=== PATIENT | female | born 1940 | race Caucasian/White ===

== ENCOUNTER 2017-07-03 11:59 | Emergency (ER) | payer MEDICARE ==
[~2017-07-03] VITALS: Wt 70.3 kg
[~2017-07-03 11:59] MED LIST: ALBUTEROL0.09 MG/Ac INH; AMARYL2 MG PO; AMOXICILLIN500 M1 PO; AVPAK AZITHROM250 M1 PO; BACTROBAN CREAM15 GM T; CITALOPRAM20 MG PO; CLEOCIN150 MG PO; DIOVAN40 MG PO; Esidrex,Oretic,25 MG PO; GLIMEPIRIDE4 MG PO; HYDROCHLOROT TAB 25M PO; KEFLEX500 MG PO; LEVOTHYROXINE0.05 M1 PO; METFORMIN HYD1000 MG PO; METFORMIN1000 MG PO; MOTRIN,RUFEN800 MG PO; OMEPRAZOLE DR20 MG PO; OMEPRAZOLE20 MG PO; PREDNISONE10 MG PO; ROBITUSSIN DM 105 ML PO; SIMVASTATIN20 MG PO; SIMVASTATIN40 MG PO; SYNTHROID0.05 MG PO; VIBRAMYCIN100 MG PO
[2017-07-03] MEDS ORDERED: PROAIR HFA8.5 GM INH (12:08)
[2017-07-03 12:43] LABS: BASO % 0.3 % (0.0-1.0); EOS # 0.1 10*3/uL (0.0-0.4); EOS % 1.2 % (1.0-4.0); HEMATOCRIT 38.6 % (37.0-47.0); HEMOGLOBIN 12.1 g/dl (12.0-16.0); LYMPH # 1.8 10*3/uL (1.3-4.4); LYMPH % 19.5 % (27.0-41.0); MEAN CELL VOLUME 86.9 fl (81.0-99.0); MEAN CORPUSCULAR HGB 27.3 pg (27.0-31.0); MEAN CORPUSCULAR HGB CONC 31.3 g/dl (33.0-37.0); MEAN PLATELET VOLUME 10.4 fl (9.6-12.3); MONO # 0.8 10*3/uL (0.1-1.0); MONO % 8.3 % (3.0-9.0); NEUT # 6.5 10*3/uL (2.3-7.9); NEUT % 70.4 % (47.0-73.0); PLATELET COUNT AUTOMATED 222 10*3/uL (130-400); RED BLOOD COUNT 4.44 10*6/uL (4.10-5.10); WHITE BLOOD COUNT 9.2 10*3/uL (4.8-10.8)
[2017-07-03 12:57] LABS: ALBUMIN 3.4 gm/dl (3.1-4.5); ALKALINE PHOSPHATASE 98 U/L (45-117); BUN 10 mg/dl (7-24); CHLORIDE 99 mmol/L (98-107); CREATININE 0.76 mg/dL (0.55-1.02); SGOT/AST 14 IU/L (3-35); SGPT/ALT 26 U/L (12-78); SODIUM 134 mmol/L (136-145); TOTAL PROTEIN 7.1 gm/dL (6.4-8.2)
[2017-07-03] MEDS ORDERED: AVPAK AZITHROM250 M1 PO (13:02)
== END 2017-07-03 14:13 | disposition home or self-care (01) ==
LOC: ED 11:59
PROVIDERS: Student in an Organized Health Care Education/Training Program
DX: J02.9 Acute pharyngitis, unspecified (principal); H92.01 Otalgia, right ear; R05 Cough; J44.9 Chronic obstructive pulmonary disease, unspecified; E11.9 Type 2 diabetes mellitus without complications; Z79.899 Other long term (current) drug therapy

== ENCOUNTER 2017-10-08 16:59 | Inpatient (IN) | payer MEDICARE ==
[~2017-10-08] VITALS: Ht 162.5 cm; Wt 69.4 kg
[~2017-10-08 16:59] MED LIST changes: +PROAIR HFA8.5 GM INH
[2017-10-08 17:08] VITALS: BP 189/80
[2017-10-08 17:42] LABS: BASO % 0.3 % (0.0-1.0); EOS # 0.1 10*3/uL (0.0-0.4); EOS % 0.5 % (1.0-4.0); HEMATOCRIT 40.1 % (37.0-47.0); HEMOGLOBIN 13.1 g/dl (12.0-16.0); LYMPH # 1.7 10*3/uL (1.3-4.4); LYMPH % 14.5 % (27.0-41.0); MEAN CELL VOLUME 84.2 fl (81.0-99.0); MEAN CORPUSCULAR HGB 27.5 pg (27.0-31.0); MEAN CORPUSCULAR HGB CONC 32.7 g/dl (33.0-37.0); MEAN PLATELET VOLUME 10.6 fl (9.6-12.3); MONO # 0.7 10*3/uL (0.1-1.0); MONO % 5.7 % (3.0-9.0); NEUT % 77.9 % (47.0-73.0); PLATELET COUNT AUTOMATED 303 10*3/uL (130-400); RED BLOOD COUNT 4.76 10*6/uL (4.10-5.10); RED CELL DISTRI WIDTH 12.6 % (0-14.5); WHITE BLOOD COUNT 11.6 10*3/uL (4.8-10.8)
[2017-10-08 17:55] VITALS: BP 158/92
[2017-10-08 18:00] LABS: ALBUMIN 3.4 gm/dl (3.1-4.5); ALKALINE PHOSPHATASE 113 U/L (45-117); BUN 14 mg/dl (7-24); CHLORIDE 95 mmol/L (98-107); CREATININE 0.79 mg/dL (0.55-1.02); POTASSIUM 4.1 mmol/L (3.5-5.1); SGOT/AST 12 IU/L (3-35); SGPT/ALT 27 U/L (12-78); SODIUM 132 mmol/L (136-145); TOTAL PROTEIN 7.6 gm/dL (6.4-8.2)
[2017-10-08 18:01] LABS: ACT PARTIAL THROMBO TIME 24.3 SECONDS (20.8-31.5); INTERNATIONAL NORM RATIO 0.9 (2.0-3.5)
[2017-10-08 18:03] LABS: TROPONIN I < 0.015 ng/ml (<0.045)
[2017-10-08 18:17] VITALS: BP 138/68
[2017-10-08] MEDS ORDERED: SYNTHROID,LEVO88 MCG PO (18:47)
[2017-10-08] MEDS ORDERED: CLARITIN LIQUI-10 MG PO (18:47)
[2017-10-08] MEDS ORDERED: METFORMIN1000 MG PO (18:48)
[2017-10-08] MEDS ORDERED: PRILOSEC20 M1 PO (18:48)
[2017-10-08 19:00] VITALS: BP 140/60
[2017-10-08 20:00] VITALS: BP 132/62
[2017-10-08 23:07] LABS: BILIRUBIN NEGATIVE (NEGATIVE); BLOOD NEGATIVE (NEGATIVE); CLARITY CLEAR (CLEAR); COLOR YELLOW (YELLOW); GLUCOSE 3+ (NEGATIVE); KETONE TRACE (NEGATIVE); LEUKO ESTERASE NEGATIVE (NEGATIVE); NITRITE NEGATIVE (NEGATIVE); PH 5.5 (5.0-9.0); SPECIFIC GRAVITY <= 1.005 (1.005-1.030); UROBILINOGEN 0.2 E.U./dl (0.2-1.0)
[2017-10-08 23:12] LABS: BACTERIA TRACE; EPITHELIAL CELLS 0-2; RBC 0-2 rbc/hpf (0-2)
[2017-10-09] VITALS: BP 149/71
[2017-10-09 07:21] LABS: HEMATOCRIT 34.9 % (37.0-47.0); HEMOGLOBIN 11.3 g/dl (12.0-16.0); MEAN CELL VOLUME 85.5 fl (81.0-99.0); MEAN CORPUSCULAR HGB 27.7 pg (27.0-31.0); MEAN CORPUSCULAR HGB CONC 32.4 g/dl (33.0-37.0); MEAN PLATELET VOLUME 10.6 fl (9.6-12.3); PLATELET COUNT AUTOMATED 265 10*3/uL (130-400); RED BLOOD COUNT 4.08 10*6/uL (4.10-5.10); RED CELL DISTRI WIDTH 12.9 % (0-14.5); WHITE BLOOD COUNT 10.7 10*3/uL (4.8-10.8)
[2017-10-09 07:41] LABS: ACT PARTIAL THROMBO TIME 23.4 SECONDS (20.8-31.5)
[2017-10-09 07:55] LABS: ALBUMIN 2.9 gm/dl (3.1-4.5); BUN 14 mg/dl (7-24); CHLORIDE 102 mmol/L (98-107); POTASSIUM 4.1 mmol/L (3.5-5.1); SGOT/AST 6 IU/L (3-35); SGPT/ALT 23 U/L (12-78); SODIUM 138 mmol/L (136-145)
[2017-10-09 08:00] VITALS: BP 149/59
[2017-10-09 08:04] LABS: ALKALINE PHOSPHATASE 90 U/L (45-117); CHOLESTEROL 155 mg/dL (<200); CREATININE 0.72 mg/dL (0.55-1.02); HDL CHOLESTEROL 45 mg/dl (40-60); LDL CHOLESTEROL 95 mg/dL (9-159); PHOSPHOROUS 3.6 mg/dL (2.5-4.9); TOTAL PROTEIN 6.6 gm/dL (6.4-8.2); TRIGLYCERIDES 73 mg/dl (<150); VLDL CHOLESTEROL 15 mg/dL (6-40)
[2017-10-09 08:33] LABS: PLATELET SUFFICIENCY NORMAL (NORMAL); TOTAL CELLS COUNTED 100 #CELLS
[2017-10-09 09:11] LABS: VITAMIN D, 25-HYDROXY 13.5 ng/mL (30-100)
[2017-10-09 12:00] VITALS: BP 138/52
[2017-10-09 16:00] VITALS: BP 131/55
[2017-10-09 20:00] VITALS: BP 127/56
[2017-10-10] VITALS: BP 121/50
[2017-10-10 07:36] LABS: HEMATOCRIT 34.9 % (37.0-47.0); HEMOGLOBIN 11.4 g/dl (12.0-16.0); MEAN CELL VOLUME 85.3 fl (81.0-99.0); MEAN CORPUSCULAR HGB 27.9 pg (27.0-31.0); MEAN CORPUSCULAR HGB CONC 32.7 g/dl (33.0-37.0); MEAN PLATELET VOLUME 10.7 fl (9.6-12.3); PLATELET COUNT AUTOMATED 273 10*3/uL (130-400); RED BLOOD COUNT 4.09 10*6/uL (4.10-5.10); RED CELL DISTRI WIDTH 13.2 % (0-14.5); WHITE BLOOD COUNT 19.9 10*3/uL (4.8-10.8)
[2017-10-10 08:00] VITALS: BP 120/66
[2017-10-10 08:06] LABS: BUN 18 mg/dl (7-24); CHLORIDE 101 mmol/L (98-107); CREATININE 0.86 mg/dL (0.55-1.02); POTASSIUM 4.2 mmol/L (3.5-5.1); SODIUM 137 mmol/L (136-145)
[2017-10-10 08:25] LABS: BASOPHILS 1 % (0-1); TOTAL CELLS COUNTED 100 #CELLS
[2017-10-10 08:26] LABS: PLATELET SUFFICIENCY NORMAL (NORMAL)
[2017-10-10 12:00] VITALS: BP 131/69
[2017-10-10 16:00] VITALS: BP 119/58
[2017-10-10 20:00] VITALS: BP 135/66
[2017-10-11] VITALS: BP 126/54
[2017-10-11] MEDS ORDERED: GLYBURIDE1.5 MG PO (05:30)
[2017-10-11] MEDS ORDERED: DOXYCYCLINE100 M3 PO (05:30)
[2017-10-11] MEDS ORDERED: PREDNISONE10 MG PO (05:30)
[2017-10-11] MEDS ORDERED: VITAMIN D-32000 UNIT PO (05:30)
[2017-10-11] MEDS ORDERED: HYDROCHLOROTHIA25 M1 PO ×3 (07:37→07:39)
[2017-10-11] MEDS ORDERED: CLARITIN LIQUI-10 MG PO (07:38)
[2017-10-11] MEDS ORDERED: SIMVASTATIN40 MG PO (07:38)
[2017-10-11] MEDS ORDERED: PROAIR HFA8.5 GM INH (07:38)
[2017-10-11] MEDS ORDERED: CITALOPRAM20 MG PO (07:38)
[2017-10-11] MEDS ORDERED: PRILOSEC20 M1 PO (07:38)
[2017-10-11] MEDS ORDERED: SYNTHROID,LEVO88 MCG PO (07:38)
[2017-10-11] MEDS ORDERED: METFORMIN1000 MG PO (07:41)
[2017-10-11 08:00] VITALS: BP 126/64
== END 2017-10-11 10:32 | disposition home or self-care (01) | DRG 191 ==
LOC: ED 16:59 → 4E 18:27 → EDHOLD 18:27 → 4E 18:38
PROVIDERS: Family Medicine; Nurse Practitioner Family
DX: J44.1 Chronic obstructive pulmonary disease with (acute) exacerbation (principal); E87.1 Hypo-osmolality and hyponatremia; E11.65 Type 2 diabetes mellitus with hyperglycemia; E87.2 Acidosis; D64.9 Anemia, unspecified; E44.1 Mild protein-calorie malnutrition; F33.9 Major depressive disorder, recurrent, unspecified; K21.9 Gastro-esophageal reflux disease without esophagitis; E03.9 Hypothyroidism, unspecified; E78.5 Hyperlipidemia, unspecified; D72.829 Elevated white blood cell count, unspecified; E55.9 Vitamin D deficiency, unspecified; I10 Essential (primary) hypertension; Z71.6 Tobacco abuse counseling; Z72.0 Tobacco use; Z68.26 Body mass index [BMI] 26.0-26.9, adult; Z83.3 Family history of diabetes mellitus; Z80.9 Family history of malignant neoplasm, unspecified; Z82.49 Family history of ischemic heart disease and other diseases of the circulatory system; Z79.899 Other long term (current) drug therapy

== ENCOUNTER 2019-10-12 21:15 | Inpatient (IN) | payer OTHER ==
[~2019-10-12] VITALS: Ht 162.6 cm; Wt 69.5 kg
[~2019-10-12 21:15] MED LIST changes: +CLARITIN LIQUI-10 MG PO; +DOXYCYCLINE100 M3 PO; +GLYBURIDE1.5 MG PO; +HYDROCHLOROTHIA25 M1 PO; +PRILOSEC20 M1 PO; +SYNTHROID,LEVO88 MCG PO; +VITAMIN D-32000 UNIT PO
[2019-10-12 21:19] VITALS: BP 146/63
[2019-10-12 21:55] LABS: BASO # 0.1 10*3/uL (0.0-0.1); BASO % 0.4 % (0.0-1.0); EOS # 0.1 10*3/uL (0.0-0.4); EOS % 0.7 % (1.0-4.0); HEMATOCRIT 37.1 % (37.0-47.0); HEMOGLOBIN 11.9 g/dl (12.0-16.0); LYMPH # 1.8 10*3/uL (1.3-4.4); LYMPH % 10.7 % (27.0-41.0); MEAN CELL VOLUME 88.8 fl (81.0-99.0); MEAN CORPUSCULAR HGB 28.5 pg (27.0-31.0); MEAN CORPUSCULAR HGB CONC 32.1 g/dl (33.0-37.0); MONO # 1.2 10*3/uL (0.1-1.0); MONO % 7.3 % (3.0-9.0); NEUT # 13.2 10*3/uL (2.3-7.9); NEUT % 80.3 % (47.0-73.0); PLATELET COUNT AUTOMATED 229 10*3/uL (130-400); RED BLOOD COUNT 4.18 10*6/uL (4.10-5.10); RED CELL DISTRI WIDTH 12.7 % (0-14.5); WHITE BLOOD COUNT 16.5 10*3/uL (4.8-10.8)
[2019-10-12 22:08] VITALS: BP 124/48
[2019-10-12 22:10] LABS: ALBUMIN 3.9 gm/dl (3.1-4.5); ALKALINE PHOSPHATASE 81 U/L (45-117); BUN 16 mg/dl (7-24); CHLORIDE 107 mmol/L (98-107); CREATININE 0.93 mg/dL (0.55-1.02); SGOT/AST 12 IU/L (3-35); SGPT/ALT 21 U/L (12-78); SODIUM 139 mmol/L (136-145); TOTAL PROTEIN 7.5 gm/dL (6.4-8.2)
[2019-10-12 22:39] LABS: BILIRUBIN NEGATIVE (NEGATIVE); BLOOD NEGATIVE (NEGATIVE); CLARITY CLOUDY (CLEAR); COLOR YELLOW (YELLOW); GLUCOSE NEGATIVE (NEGATIVE); KETONE NEGATIVE (NEGATIVE); LEUKO ESTERASE 2+ (NEGATIVE); NITRITE NEGATIVE (NEGATIVE); SPECIFIC GRAVITY 1.025 (1.005-1.030); UROBILINOGEN 0.2 E.U./dl (0.2-1.0)
[2019-10-12 22:40] VITALS: BP 156/59
[2019-10-12 23:07] LABS: BACTERIA 1+; EPITHELIAL CELLS TNTC
[2019-10-12 23:10] VITALS: BP 140/55
[2019-10-12 23:40] VITALS: BP 138/60
--- NOTE | 2019-10-12 23:47 | NUR ---
GRANDSON TO BE CONTACTED WITH PATIENT DISPOSITION. PT GIVES VERBAL CONSENT. GERARDO ELENO WATSON() [phone]
[2019-10-13 00:10] VITALS: BP 125/57
[2019-10-13 00:40] VITALS: BP 107/82
--- NOTE | 2019-10-13 00:40 | NUR ---
Time: 39 A 78 year old FEMALE admitted to 5E under services of LOGAN LIU DO. Pt. arrived via bed from ER. Chief complaint: RIGHT HIP PAIN. ROE RIOJAS
--- NOTE | 2019-10-13 00:40 | NUR ---
CONSULT ALREADY CALLED VIA ER STAFF
[2019-10-13] MEDS ORDERED: METFORMIN850 MG PO (00:43)
--- NOTE | 2019-10-13 00:51 | NUR ---
IN TO SEE PATIENT AT BEDSIDE
[2019-10-13] MEDS ORDERED: PRILOSEC20 M1 PO (00:53)
[2019-10-13] MEDS ORDERED: CITALOPRAM40 MG PO (00:55)
--- NOTE | 2019-10-13 01:37 | NUR ---
AWARE THAT HOME MED ARE VERIFIED
--- NOTE | 2019-10-13 06:32 | NUR ---
PATIENT MEDICATED WITH MORPHINE FOR C/O 8/ PAIN. WILL MONITOR
[2019-10-13 07:37] LABS: BASO % 0.4 % (0.0-1.0); EOS # 0.1 10*3/uL (0.0-0.4); EOS % 1.2 % (1.0-4.0); HEMATOCRIT 35.3 % (37.0-47.0); HEMOGLOBIN 11.1 g/dl (12.0-16.0); LYMPH # 1.4 10*3/uL (1.3-4.4); LYMPH % 17.6 % (27.0-41.0); MEAN CELL VOLUME 88.9 fl (81.0-99.0); MEAN CORPUSCULAR HGB CONC 31.4 g/dl (33.0-37.0); MEAN PLATELET VOLUME 11.1 fl (9.6-12.3); MONO # 0.9 10*3/uL (0.1-1.0); NEUT # 5.4 10*3/uL (2.3-7.9); NEUT % 69.5 % (47.0-73.0); PLATELET COUNT AUTOMATED 194 10*3/uL (130-400); RED BLOOD COUNT 3.97 10*6/uL (4.10-5.10); RED CELL DISTRI WIDTH 12.8 % (0-14.5); WHITE BLOOD COUNT 7.8 10*3/uL (4.8-10.8)
[2019-10-13 07:53] LABS: BUN 11 mg/dl (7-24); CHLORIDE 107 mmol/L (98-107); CREATININE 0.71 mg/dL (0.55-1.02); POTASSIUM 4.2 mmol/L (3.5-5.1); SODIUM 139 mmol/L (136-145)
[2019-10-13 08:00] VITALS: BP 154/66
--- NOTE | 2019-10-13 08:14 | NUR ---
NORCO GIVEN PER PRN ORDER FOR C/O RIGHT HIP PAIN. RATES PAIN 8/10. WILL MONITOR EFFECTIVENESS.
--- NOTE | 2019-10-13 09:20 | NUR ---
LOCO EFFECTIVE PER PT.
[2019-10-13] MEDS ORDERED: LISINOPRIL10 M1 PO (09:49)
--- NOTE | 2019-10-13 09:51 | NUR ---
NOTIFIED REGARDING UPDATED MED REC.
[2019-10-13 12:00] VITALS: BP 118/48
[2019-10-13 12:05] LABS: CHOLESTEROL 126 mg/dL (<200); HDL CHOLESTEROL 47 mg/dl (40-60); LDL CHOLESTEROL 59 mg/dL (9-159); TRIGLYCERIDES 98 mg/dl (<150); VLDL CHOLESTEROL 20 mg/dL (6-40)
--- NOTE | 2019-10-13 15:00 | NUR ---
PHYSICAL THERAPY SPOKE WITH NURSE TODAY ON LEVEL [address] CUELLO HAS BEEN CONSULTED REGARDING GREATER TROCHANTER FX BUT HAS NOT SEEN YET THEREFORE PT SERVICES ARE BEING HELD UNTIL CLARIFICATION OF WB AND POC FOR FX. THANK YOU PRINCESS RAMIREZ PT
[2019-10-13 16:00] VITALS: BP 153/53
--- NOTE | 2019-10-13 16:19 | NUR ---
PT MEDICATED WITH PO NORCO PER PRN ORDER FOR C/O RIGHT HIP PAIN. RATES PAIN 04/11. WILL MONITOR EFFECTIVENESS.
--- NOTE | 2019-10-13 16:45 | NUR ---
CALLED IN AT THIS TIME. PT WILL NOT NEED SURGERY PER .
--- NOTE | 2019-10-13 17:24 | NUR ---
NORCO EFFECTIVE PER PT. WILL CONTINUE TO MONITOR.
[2019-10-13 20:00] VITALS: BP 136/52
--- NOTE | 2019-10-13 20:00 | NUR ---
Patient resting quietly with no c/o discomfort. Respirations easy and regular. Vital signs stable. No overt distress. ROE RIOJAS
--- NOTE | 2019-10-13 21:39 | NUR ---
PATIENT MEDICATED WITH NORCO FOR C/O PAIN 03/03O TO R HIP. WILL MONITOR
--- NOTE | 2019-10-13 22:39 | NUR ---
NORCO EFFECTIVE FOR PAIN.
[2019-10-14] VITALS: BP 126/57
--- NOTE | 2019-10-14 05:20 | NUR ---
24 HR chart check completed.
--- NOTE | 2019-10-14 06:27 | NUR ---
PATIENT MEDICATED WITH NORCO FOR C/O 5/10 HIP PAIN. WILL MONITOR
--- NOTE | 2019-10-14 06:30 | NUR ---
MCCOLLUM CATH REMOVED. PATIENT TOLERATED WELL.
--- NOTE | 2019-10-14 07:40 | NUR ---
NORCO RELIEVING PAIN PER PT. WILL CONTINUE TO MONITOR.
[2019-10-14 08:00] VITALS: BP 131/48
[2019-10-14 08:12] LABS: BASO % 0.4 % (0.0-1.0); EOS # 0.2 10*3/uL (0.0-0.4); EOS % 1.6 % (1.0-4.0); HEMATOCRIT 38.6 % (37.0-47.0); HEMOGLOBIN 12.2 g/dl (12.0-16.0); LYMPH # 1.1 10*3/uL (1.3-4.4); LYMPH % 11.7 % (27.0-41.0); MEAN CELL VOLUME 90.6 fl (81.0-99.0); MEAN CORPUSCULAR HGB 28.6 pg (27.0-31.0); MEAN CORPUSCULAR HGB CONC 31.6 g/dl (33.0-37.0); MEAN PLATELET VOLUME 10.6 fl (9.6-12.3); MONO # 0.9 10*3/uL (0.1-1.0); NEUT # 7.4 10*3/uL (2.3-7.9); NEUT % 76.8 % (47.0-73.0); PLATELET COUNT AUTOMATED 196 10*3/uL (130-400); RED BLOOD COUNT 4.26 10*6/uL (4.10-5.10); RED CELL DISTRI WIDTH 12.9 % (0-14.5); WHITE BLOOD COUNT 9.6 10*3/uL (4.8-10.8)
--- NOTE | 2019-10-14 10:46 | NUR ---
Fiscal Technician in to talk to patient. Patient states lives at HOME with GRANDSON AND HIS . There are BASEMENT steps in the home. Physician: PHILLIP Pharmacy: [facility] services: NONE Patient's level of ADLs: INDEPENDENT Patient has working utilities: YES DME: NONE Follow-up physician's appointment after d/c: WILL BE MADE BY HOSPITALIST NURSE DIRECTOR ON DISCHARGE Does patient want to access PORTAL?: NO Discharge plan PT LIVES WITH GRANDSON AND HIS AND IS INDEPENDENT IN CARE. PT IS REQUESTING A REFERRAL TO REHAB SUITES BEFORE RETURNING HOME FOR REHAB.NO OTHER NEEDS AT THIS TIME. WILL CONTINUE TO FOLLOW. RAMON JENSEN
[2019-10-14 12:00] VITALS: BP 109/42
--- NOTE | 2019-10-14 14:00 | NUR ---
PHYSICAL THERAPY PT EVAL COMPLETED ON LEVEL 4: FULL EVAL TO FOLLOW. RECOMMEND PT WHILE HERE TO ADDRESS DECREASED STRENGTH, ENDURANCE, BALANCE AND PAIN FROM RECENT FRACTURE/FALL. PT EVAL IS MODERATE COMPLEXITY: [id number]. D/C RECOMMENDATIONS ARE FOR SNF ON D/C TO ALLOW PATIENT TO REGAIN PLOF AND RETURN TO HOME. THANK YOU FOR REFERRAL PRINCESS RAMIREZ PT
--- NOTE | 2019-10-14 14:40 | NUR ---
PT MEDICATED WITH PO NORCO PER PRN ORDER FOR C/O RIGHT HIP PAIN. RATES PAIN 05/12. WILL MONITOR EFFECTIVENESS.
--- NOTE | 2019-10-14 15:58 | NUR ---
NORCO RELIEVING PAIN PER PT. WILL CONTINUE TO MONITOR.
[2019-10-14 16:00] VITALS: BP 113/62
--- NOTE | 2019-10-14 19:49 | NUR ---
24 HR chart check completed.
[2019-10-14 20:00] VITALS: BP 116/53
--- NOTE | 2019-10-14 22:11 | NUR ---
PATIENT REQUESTING PAIN MEDICATION FOR RIGHT HIP PAIN RATED 7/10 ON 0/10 SCALE. NORCO ADMINISTERED PRESCRIBED. WILL MONITOR FOR EFFECTIVENESS.
--- NOTE | 2019-10-14 23:00 | NUR ---
ASSUMED CARE FOR THIS PT AT THIS TIME. NO C/O VOICED. CALL LIGHT IN REACH.
[2019-10-15] VITALS: BP 118/48
--- NOTE | 2019-10-15 06:33 | NUR ---
24 HR chart check completed.
--- NOTE | 2019-10-15 07:30 | NUR ---
VITAL SIGNS STABLE. PT ALERT AND ORIENTED X3. JACKI. POSITIVE PEDAL PULSES. HEART SOUNDS NORMAL. LUNGS SOUND CLEAR THROUGHOUT. ABDOMEN SOFT, NON TENDER, NON DISTENDED. BS X4. SKIN WARM, PINK, AND DRY. IV SITE TO THE RIGHT ANTECUBITAL IS INTACT AND SHOWS NO SIGNS OF INFECTION. PT STATES SHE IS NOT IN PAIN AT THIS TIME. BOTH LEGS AND FEET ARE WARM, PINK, AND DRY. POSTIVE PULSES. PT IS COOPERATIVE AND PLEASANT. WILL CONTINUE TO MONITOR. ABDELRAHMAN HERNANDEZ SPASHLEYCC
--- NOTE | 2019-10-15 07:50 | NUR ---
PT C/O OF RIGHT HIP PAIN. RATED PAIN AN 8/10. GAVE NORCO 1 5/325 PO. WILL CONTINUE TO MONITOR. ABDELRAHMAN HERNANDEZ SPNRCC
--- NOTE | 2019-10-15 07:52 | NUR ---
PHYSICAL THERAPY Screen received pt has been evaluated by PT and is on caseload, thank you Marah Yadav PT
[2019-10-15 08:00] VITALS: BP 118/45; BP 118/48; BP 119/45
--- NOTE | 2019-10-15 08:00 | NUR ---
VITAL SIGNS STABLE. PT ALERT AND ORIENTEDX3. JACKI. POSITIVE PEDAL PULSES. HEART SOUNDS NORMAL. LUNGS SOUND CLEAR THROUGHOUT. ABDOMEN SOFT, NON TENDER, NON DISTENDED. BS X4. SKIN WARM, DRY, AND INTACT. IV SITE TO THE RIGHT ANTECUBITAL INTACT AND SHOWS NO SIGNS OF INFECTION. BOTH LEGS AND FEET ARE WARM, PINK,AND DRY.PT STATED SHE WAS NOT IN PAIN AT THIS TIME.PT VERY PLESANT AND COOPERATIVE. WILL CONTINUE TO MONITOR. ABDELRAHMAN HERNANDEZ SPASHLEYCC
--- NOTE | 2019-10-15 08:57 | NUR ---
Nursing screen and Occupational Therapy referral received. Thank you. Yanira Powell OTR/l
--- NOTE | 2019-10-15 09:08 | NUR ---
PHYSICAL THERAPY TREATMENT TIME: 8:55 AM - 09:10 AM 15 MINUTES TOTAL Patient presented to therapy in supine with head of bed elevated and report of minimal pain in the R HIP. Patient gives informed consent for treatment. Patient was identified by name and on wristband. Patient is WBAT on R LE. Patient transferred supine to sitting on EOB with MIN A X 1. Patient sat on EOB with SBA. Patient sit to stand from EOB with MIN A X 1 WITH VERBAL CUES FOR PUSHING OFF BED WITH HANDS. Patient ambulated with Wh Walker and CGA X 1 to MIN A X 1 for 50' x 1 with one moderate LOB to the R requiring MIN A X 1 to correct. Patient was left with BARREL HEADER AND STAFF and she was ambulating into restroom with student nurse. Patient was 1:1 with this CHANNEL ROUGHER for 15 minutes total. LON CANO CHANNEL ROUGHER
--- NOTE | 2019-10-15 11:16 | NUR ---
NORCO EFFECTIVE. PT STATED SHE FEELS SO MUCH BETTER. WILL CONTINUE TO MONITOR. ABDELRAHMAN HERNANDEZ SPCC
--- NOTE | 2019-10-15 11:45 | NUR ---
Occupational Therapy offered this am. Nurse to give patient pain pill at 11:45 and patient requests OT return after that for evaluation. Yanira Powell OTR/L
--- NOTE | 2019-10-15 11:57 | NUR ---
PT C/O OF RIGHT HIP PAIN. RATED PAIN A 04/11. GAVE NORCO 1 5/325 PO. WILL CONTINUE TO MONITOR. ABDELRAHMAN HERNANDEZ SPNRCC
[2019-10-15 12:00] VITALS: BP 120/48
--- NOTE | 2019-10-15 12:45 | NUR ---
Occupational Therapy evaluation completed on 5 with full eval to follow. Precautions include RLE WBAT 4-6 wks w/ ww, fall risk; bed alarm,right hip pain,moderate complexity level 37480. Recommend OT per pOC and SNF to enable return home at indep level with family. Thank you. Yanira Powell OTR/l
--- NOTE | 2019-10-15 13:24 | NUR ---
NORCO EFFECTIVE. PT STATES " THANK YOU FOR THE MEDICINE. I FEEL BETTER." WILL CONTINUE TO MONITOR. ABDELRAHMAN HERNANDEZ SPASHLEYCC
--- NOTE | 2019-10-15 13:30 | NUR ---
Alumni Secretary in to see patient. No new needs or request at this time. Discussed short term SNF and Rehab Suites being full at this time. She would like to discuss with her grandson and granddaughter their thoughts and get back to CM later today or tomorrow. Discussed local facilities including [facility] and [facility]. Awaiting facility decision.
--- NOTE | 2019-10-15 15:17 | NUR ---
PHYSICAL THERAPY TREATMENT TIME: 3:00 PM - 3:17 PM 17 MINUTES Patient presented to therapy in stadning in the doorway of restroom after the PCT had walked her into the bathroom. Patient gives informed consent for treatment. Patient was indentified by name and on wristband. Patient performed ambulation with Wh Walker and CGA X 1 for 60' x 2 with one seated restbreak after the 1st 60' x 1 with one minor LOB to the R requring MIN A x 1 TO CORRECT. Patient performed transferinto supine in bed with MIN A X 1. Patient was left in supine in bed with head of bed elevated, call light within reach and bed alarm activated. Patient was 1:1 with this TILESETTER for 17 minutes total. LON CANO TILESETTER
[2019-10-15 16:00] VITALS: BP 105/59
--- NOTE | 2019-10-15 17:43 | NUR ---
PT STATES PAIN LEFT HIP 05/12, NORCO GIVEN
--- NOTE | 2019-10-15 19:31 | NUR ---
24 HR chart check completed.
[2019-10-15 20:00] VITALS: BP 128/55
--- NOTE | 2019-10-15 22:16 | NUR ---
PATIENT REQUESTING PAIN MEDICATION FOR RIGHT HIP PAIN RATED 7/10 ON 0/10 SCALE. NORCO ADMINISTERED PRESCRIBED. WILL MONITOR FOR EFFECTIVENESS.
--- NOTE | 2019-10-15 23:16 | NUR ---
PATIENT RESTING WITH EYES CLOSED. RESPIRATIONS EASY AND UNLABORED. CALL LIGHT IN REACH. WILL MONITOR.
[2019-10-16] VITALS: BP 117/52
--- NOTE | 2019-10-16 03:57 | NUR ---
PATIENT REQUESTING PAIN MEDICATION FOR RIGHT HIP PAIN RATED 7/10 ON 0/10 SCALE. NORCO ADMINISTERED PRESCRIBED. WILL MONITOR FOR EFFECTIVENESS.
--- NOTE | 2019-10-16 04:57 | NUR ---
PATIENT RESTING WITH EYES CLOSED. RESPIRATIONS EASY AND UNLABORED. CALL LIGHT IN REACH. WILL MONITOR.
[2019-10-16 06:47] LABS: BASO % 0.3 % (0.0-1.0); EOS # 0.2 10*3/uL (0.0-0.4); EOS % 2.3 % (1.0-4.0); HEMATOCRIT 35.7 % (37.0-47.0); HEMOGLOBIN 11.1 g/dl (12.0-16.0); LYMPH # 1.3 10*3/uL (1.3-4.4); LYMPH % 14.7 % (27.0-41.0); MEAN CELL VOLUME 90.2 fl (81.0-99.0); MEAN CORPUSCULAR HGB CONC 31.1 g/dl (33.0-37.0); MEAN PLATELET VOLUME 11.4 fl (9.6-12.3); MONO # 0.9 10*3/uL (0.1-1.0); MONO % 10.4 % (3.0-9.0); NEUT # 6.4 10*3/uL (2.3-7.9); NEUT % 71.8 % (47.0-73.0); PLATELET COUNT AUTOMATED 198 10*3/uL (130-400); RED BLOOD COUNT 3.96 10*6/uL (4.10-5.10); RED CELL DISTRI WIDTH 12.5 % (0-14.5); WHITE BLOOD COUNT 8.9 10*3/uL (4.8-10.8)
[2019-10-16 07:18] LABS: CREATININE 0.75 mg/dL (0.55-1.02)
[2019-10-16 08:00] VITALS: BP 134/55
--- NOTE | 2019-10-16 09:11 | NUR ---
TRAINING DIRECTOR was notified the patient would like to be referred to [facility]. TRAINING DIRECTOR faxed new referral to [facility]. PRECERT will be required. TRAINING DIRECTOR asked if able to accept to start PRECERT. -ARNULFO James
--- NOTE | 2019-10-16 09:11 | NUR ---
Iron Pourer in to see patient. Discussed if she spoke to her grandchildren regarding short term SNF and they all agreed on [facility]. grab jack worker notified.
--- NOTE | 2019-10-16 11:48 | NUR ---
PHYSICAL THERAPY Pt seen 1:1 with LIBRARIAN SPECIALIST x 28 minutes today. Pt in bed upon arriving to room, quite pleasant, ready to work. Pt able to get out of bed, SBA x 1 for safety, cues to take it slow and easy, c/o increased pain in R hip, 9/10 w bed mobility, gait with wheeled walker 60'x 3, CGA for safety to build activity tolerance and improve WBing through R LE. Pt then requested to sit in bedside chair, cues for safety with transfers, felt good with sitting upright in chair, helping to take stress off R LE, pain at 7/10. Ino Loyola, LIBRARIAN SPECIALIST
[2019-10-16 12:00] VITALS: BP 131/41
--- NOTE | 2019-10-16 13:31 | NUR ---
Waiting on acceptance to [facility]. PRECERT will be required. HENs has been completed. -ARNULFO James
--- NOTE | 2019-10-16 14:17 | NUR ---
OT NOTE Pt was seen this P.M. 1:1 for 27 minute OT session. Upon arrival pt was sitting upright in the recliner. Pt identified by name and and had complaints of 7/10 R hip pain. While sitting in the recliner requested for pt to doff and carina B socks. Pt was able to complete L sock with SBA and R sock she was unable to complete due to pain with forward flexion. Pt was then educated, demonstrated, and provided with spring up supervisor and sock aid for increased I in lower body dressing. Pt was able to then complete task with SBA. Pt was also educated and provided with use of long handled sponge for lower body bathing, task was simulated with SBA. Sit to stand completed from chair level with Waldo and use of w/w for UE support. Pt was educated on proper technique for increased I and improved technique, pt presented with good carry over. Functional mobility was then completed to the bathroom with CGA and use of w/w for UE support. Pt transferred on/off elevated commode with CGA followed by standing sink side with CGA while washing her hands. Functional mobility was then completed back to the recliner with CGA and use of w/w. There she was educated on technique for completing stand to sit transfer while kicking her RLE out when sitting. Pt was left sitting upright in the recliner with call light in hand, tray table in place, and phone in reach. Continue with rec D/C plan to SNF. ELIZABETH Alaniz
--- NOTE | 2019-10-16 14:37 | NUR ---
PRECERT has been started. Patient has been accepted to [facility]. -ARNULFO James
--- NOTE | 2019-10-16 15:05 | NUR ---
Spoke to granddaughter, Gaby, regarding discharge planning. She is agreeable to [facility] and wanted to know about out of pocket expenses and home health services after discharge from [facility]. Explained [facility] will set up home health care services after discharge from [facility]. Discussed out of pocket expenses to the best of my knowledge. Encouraged to call [facility] and she verbalized an understanding.
[2019-10-16 16:00] VITALS: BP 101/87
[2019-10-16 20:00] VITALS: BP 140/50
[2019-10-17] VITALS: BP 123/46
--- NOTE | 2019-10-17 06:13 | NUR ---
NAPROXEN GIVEN FOR PAIN RATED 8/10 TO RT HIP. CALL LIGHT IN REACH
--- NOTE | 2019-10-17 07:20 | NUR ---
VITAL SIGNS STABLE. PT ALERT AND ORIENTED X3. JACKI. POSITIVE PEDAL PULSES. HEART SOUNDS NORMAL. LUNGS SOUND CLEAR THROUGHOUT. ABDOMEN SOFT, NON TENDER, NON DISTENDED. BS X4. SKIN DRY, PINK AND INTACT. BOTH LEGS AND FEET ARE PINK, WARM AND DRY. POSITIVE PULSES. IV TO THE RIGHT ANTECUBITAL IS INTACT AND SHOWS NO SIGNS OF INFECTION. PT DID NOT C/O OF PAIN AT THIS TIME. PT IS VERY PLEASANT AND COOPERATIVE. WILL CONTINUE TO ASSESS. ABDELRAHMAN HERNANDEZ SPASHLEYCC
[2019-10-17 07:58] VITALS: BP 124/56
--- NOTE | 2019-10-17 10:57 | NUR ---
OT NOTE Pt was seen this A.M. 1:1 for 28 minute OT session. Upon arrival pt was supine in bed. Pt identified by name and and had complaints of 6-7/10 R hip pain. While pt was transferring supine to sit pt was requiring modA for RLE management, resulting in pt being educated and demonstrated on use of leg talent management specialist for increased I and improved technique. Pt transferred supine to sit EOB with CGA and use of leg talent management specialist for RLE. Sit to stand completed from bed level with CGA and use of w/w followed by functional mobility into the bathroom with CGA and use of w/w. There she transferred on/off elevated commode with CGA. Functional mobility was then completed back to the recliner. There she doffed and donned B socks with use of staple shear operator and sock aid with SBA and good carry over of use. Pt was left sitting upright in the recliner with call ligh tin hand, tray table in place, and body alarm activated for safety. Continue with rec D/C plan to SNF. ELIZABETH Alaniz
[2019-10-17 12:00] VITALS: BP 120/46
--- NOTE | 2019-10-17 12:03 | NUR ---
PHYSICAL THERAPY 1:1 Time: 30 Pain on a scale of 0-10 > Prior to treatment: 8 Post treatment: 8 Progress note: Pt states that she is sore this date. Pt reports that she had some pain through the night. Pt seen this date for physical therapy services. Pt seen for one on one therex this date for bedside therex as well as seated therex to improve strength. Pt ambulated this date with contact guard assistance with a wheeled walker Pt able to ambulate 20ft x 2 this date with cueing required for safety and technique this date to prevent further injury. SHAUNA GASTON CHIEF OF PRODUCTION
--- NOTE | 2019-10-17 13:27 | NUR ---
PT RESTING IN CHAIR. NO COMPLAINTS AT THIS TIME. ABDELRAHMAN HERNANDEZ SPNRCC
--- NOTE | 2019-10-17 14:25 | NUR ---
PRECERT is still pending. -ARNULFO James
--- NOTE | 2019-10-17 14:49 | NUR ---
PRECERT has been obtained. MAC OPERATOR notified RN Hosptialist Coordinator Johanne. -ARNULFO James
[2019-10-17] MEDS ORDERED: TYLENOL325 M2 PO (14:56)
[2019-10-17] MEDS ORDERED: VITAMIN D32000 UNI1 PO (14:56)
[2019-10-17] MEDS ORDERED: OXYCODONE HCL5 M1 PO (14:56)
--- NOTE | 2019-10-17 15:24 | NUR ---
FINAL BLOCK PRESS OPERATOR spoke with LISA Solano about discharge. FINAL BLOCK PRESS OPERATOR reached out to [facility], they are able to transport the patient now, FINAL BLOCK PRESS OPERATOR confirmed this is okay with LISA Solano. FINAL BLOCK PRESS OPERATOR notified [facility] and will fax discharge orders to her. FINAL BLOCK PRESS OPERATOR left message on [employer], phone explainined discharge and transport. -ARNULFO James
--- NOTE | 2019-10-17 15:45 | NUR ---
PT DISCHARGED TO [facility] AT THIS TIME. WHITNEY AGUIRRE ATTEMPTED TO CALL REPORT WITH NO ANSWER. DISCHARGE PAPERWORK GIVEN IN PACKET TO EMT.
--- NOTE | 2019-10-18 07:30 | NUR ---
PHYSICAL THERAPY CO-SIGN I approve of the Physical Therapy notes written above. Marah Yadav PT
--- NOTE | 2019-10-19 07:52 | NUR ---
OCCUPATIONAL THERAPY CO-SIGN I approve of the Occupational Therapy notes written above. HERBIE KING, OTR/L
== END 2019-10-17 15:45 | disposition other institution (70) | DRG 536 ==
LOC: ED 21:15 → 5E 10-13 00:02 → EDHOLD 10-13 00:02 → 5E 10-13 00:12
PROVIDERS: Family Medicine; Internal Medicine; Physician Assistant; ADMIT Emergency Medicine
DX: S72.114A Nondisplaced fracture of greater trochanter of right femur, initial encounter for closed fracture (principal); D64.9 Anemia, unspecified; K21.9 Gastro-esophageal reflux disease without esophagitis; E11.65 Type 2 diabetes mellitus with hyperglycemia; E03.9 Hypothyroidism, unspecified; E11.69 Type 2 diabetes mellitus with other specified complication; J44.9 Chronic obstructive pulmonary disease, unspecified; I10 Essential (primary) hypertension; E78.5 Hyperlipidemia, unspecified; M85.80 Other specified disorders of bone density and structure, unspecified site; F32.9 Major depressive disorder, single episode, unspecified; W19.XXXA Unspecified fall, initial encounter; Z96.1 Presence of intraocular lens; Y93.89 Activity, other specified; Y92.89 Other specified places as the place of occurrence of the external cause; Y99.8 Other external cause status; Z83.3 Family history of diabetes mellitus; Z82.49 Family history of ischemic heart disease and other diseases of the circulatory system; Z98.49 Cataract extraction status, unspecified eye; Z79.899 Other long term (current) drug therapy; Z87.891 Personal history of nicotine dependence

== ENCOUNTER → 2019-11-01 | Outpatient (CLI) | payer OTHER ==
[~2019-11-01] MED LIST changes: +CITALOPRAM40 MG PO; +LISINOPRIL10 M1 PO; +METFORMIN850 MG PO; +OXYCODONE HCL5 M1 PO; +TYLENOL325 M2 PO; +VITAMIN D32000 UNI1 PO
== END | disposition home or self-care (01) ==
LOC: ORTHO 00:30
DX: S72.114D Nondisplaced fracture of greater trochanter of right femur, subsequent encounter for closed fracture with routine healing (principal); X58.XXXD Exposure to other specified factors, subsequent encounter

== ENCOUNTER → 2019-12-03 | Outpatient (CLI) | payer OTHER | END | disposition home or self-care (01) | LOC: ORTHO 01:05 | DX: S72.114D Nondisplaced fracture of greater trochanter of right femur, subsequent encounter for closed fracture with routine healing (principal); M16.11 Unilateral primary osteoarthritis, right hip; X58.XXXD Exposure to other specified factors, subsequent encounter ==

== ENCOUNTER 2022-04-13 12:11 | Emergency (ER) | payer OTHER ==
[~2022-04-13] VITALS: Ht 162.5 cm; Wt 69.9 kg
[2022-04-13 13:24] LABS: BILIRUBIN Negative (Negative); BLOOD Negative (Negative); CLARITY Clear (Clear); COLOR Yellow (Yellow); GLUCOSE Negative (Negative); KETONE Negative (Negative); LEUKO ESTERASE Negative (Negative); NITRITE Negative (Negative); PH 5.5 (4.5-8.0); SPECIFIC GRAVITY 1.015 (1.001-1.030)
[2022-04-13 13:40] LABS: BASO % 0.5 % (0.0-1.0); EOS # 0.1 10*3/uL (0.0-0.4); EOS % 1.2 % (1.0-4.0); HEMATOCRIT 37.4 % (37.0-47.0); LYMPH # 1.8 10*3/uL (1.3-4.4); LYMPH % 21.7 % (27.0-41.0); MEAN CELL VOLUME 88.2 fl (81.0-99.0); MEAN CORPUSCULAR HGB 27.8 pg (27.0-31.0); MEAN CORPUSCULAR HGB CONC 31.6 g/dl (33.0-37.0); MEAN PLATELET VOLUME 10.7 fl (9.6-12.3); MONO # 0.7 10*3/uL (0.1-1.0); MONO % 8.3 % (3.0-9.0); NEUT # 5.7 10*3/uL (2.3-7.9); NEUT % 67.7 % (47.0-73.0); PLATELET COUNT AUTOMATED 250 10*3/uL (130-400); RED BLOOD COUNT 4.24 10*6/uL (4.10-5.10); WHITE BLOOD COUNT 8.4 10*3/uL (4.8-10.8)
[2022-04-13 13:47] LABS: BACTERIA 1+; MUCOUS TRACE
[2022-04-13 13:51] LABS: ACT PARTIAL THROMBO TIME 27.3 SECONDS (20.0-32.1)
[2022-04-13 13:56] LABS: ALKALINE PHOSPHATASE 114 U/L (45-117); BUN 15 mg/dl (7-24); CHLORIDE 106 mmol/L (98-107); CREATININE 0.69 mg/dL (0.55-1.02); LIPASE 124 U/L (73-393); POTASSIUM 4.5 mmol/L (3.5-5.1); SGOT/AST 11 IU/L (3-35); SGPT/ALT 13 U/L (12-78); SODIUM 136 mmol/L (136-145); TOTAL PROTEIN 7.3 gm/dL (6.4-8.2)
[2022-04-13] MEDS ORDERED: HYDROCODONE-AC1 EAC1 PO (16:19)
== END 2022-04-13 16:43 | disposition home or self-care (01) ==
LOC: ED 12:11
PROVIDERS: Emergency Medicine
DX: M54.50 Low back pain, unspecified (principal); Z87.891 Personal history of nicotine dependence; Z98.890 Other specified postprocedural states; Z79.899 Other long term (current) drug therapy

== ENCOUNTER 2023-02-17 12:13 | Inpatient (IN) | payer OTHER ==
[~2023-02-17] VITALS: Ht 162.5 cm; Wt 56.4 kg
[2023-02-17] VITALS (8 sets, daily range): BP systolic 127–184; BP diastolic 50–74
[~2023-02-17 12:13] MED LIST changes: +HYDROCODONE-AC1 EAC1 PO
[2023-02-17 13:16] LABS: BASO % 0.4 % (0.0-1.0); EOS # 0.1 10*3/uL (0.0-0.4); HEMATOCRIT 36.7 % (37.0-47.0); LYMPH # 1.5 10*3/uL (1.3-4.4); LYMPH % 18.6 % (27.0-41.0); MEAN CORPUSCULAR HGB 27.8 pg (27.0-31.0); MEAN CORPUSCULAR HGB CONC 31.6 g/dl (33.0-37.0); MEAN PLATELET VOLUME 10.5 fl (9.6-12.3); MONO # 0.7 10*3/uL (0.1-1.0); MONO % 9.3 % (3.0-9.0); NEUT # 5.5 10*3/uL (2.3-7.9); NEUT % 70.3 % (47.0-73.0); PLATELET COUNT AUTOMATED 232 10*3/uL (130-400); RED BLOOD COUNT 4.17 10*6/uL (4.10-5.10); RED CELL DISTRI WIDTH 13.5 % (0-14.5); WHITE BLOOD COUNT 7.8 10*3/uL (4.8-10.8)
[2023-02-17 13:29] LABS: ACT PARTIAL THROMBO TIME 25.5 SECONDS (20.0-32.1)
[2023-02-17 13:45] LABS: ALKALINE PHOSPHATASE 81 U/L (46-116); BUN 12 mg/dl (9-23); CHLORIDE 104 mmol/L (98-107); POTASSIUM 4.9 mmol/L (3.4-5.1); SGPT/ALT 9 U/L (10-49)
[2023-02-18] VITALS (10 sets, daily range): BP systolic 113–163; BP diastolic 52–78
[2023-02-18 06:52] LABS: BASO % 0.4 % (0.0-1.0); EOS # 0.1 10*3/uL (0.0-0.4); EOS % 1.2 % (1.0-4.0); HEMATOCRIT 36.1 % (37.0-47.0); LYMPH # 1.3 10*3/uL (1.3-4.4); MEAN CELL VOLUME 88.7 fl (81.0-99.0); MEAN CORPUSCULAR HGB 27.8 pg (27.0-31.0); MEAN CORPUSCULAR HGB CONC 31.3 g/dl (33.0-37.0); MEAN PLATELET VOLUME 10.2 fl (9.6-12.3); MONO # 0.8 10*3/uL (0.1-1.0); MONO % 10.6 % (3.0-9.0); NEUT # 5.4 10*3/uL (2.3-7.9); NEUT % 70.5 % (47.0-73.0); PLATELET COUNT AUTOMATED 207 10*3/uL (130-400); RED BLOOD COUNT 4.07 10*6/uL (4.10-5.10); RED CELL DISTRI WIDTH 13.7 % (0-14.5); WHITE BLOOD COUNT 7.7 10*3/uL (4.8-10.8)
[2023-02-18 07:20] LABS: ALKALINE PHOSPHATASE 79 U/L (46-116); BUN 10 mg/dl (9-23); CHLORIDE 105 mmol/L (98-107); CHOLESTEROL 120 mg/dL (<200); FREE T4 0.99 ng/dl (0.89-1.76); LDL CHOLESTEROL 60 mg/dL (9-159); POTASSIUM 4.3 mmol/L (3.4-5.1); THYROID STIM HORMONE (HS) 4.523 uIU/ml (0.550-4.780); TOTAL PROTEIN 6.7 gm/dL (6.0-8.0); TRIGLYCERIDES 88 mg/dl (<150)
[2023-02-18 07:34] LABS: SGPT/ALT < 7 U/L (10-49)
[2023-02-18 07:35] LABS: VITAMIN D, 25-HYDROXY 19.6 ng/mL (30-100)
[2023-02-19] VITALS: BP 130/49
[2023-02-19 06:09] LABS: BUN 11 mg/dl (9-23); CHLORIDE 102 mmol/L (98-107); POTASSIUM 4.4 mmol/L (3.4-5.1)
[2023-02-19 06:10] LABS: BASO % 0.1 % (0.0-1.0); LYMPH % 7.4 % (27.0-41.0); MEAN CELL VOLUME 87.9 fl (81.0-99.0); MEAN CORPUSCULAR HGB 28.2 pg (27.0-31.0); MEAN CORPUSCULAR HGB CONC 32.1 g/dl (33.0-37.0); MEAN PLATELET VOLUME 10.9 fl (9.6-12.3); MONO # 1.1 10*3/uL (0.1-1.0); NEUT % 84.1 % (47.0-73.0); PLATELET COUNT AUTOMATED 222 10*3/uL (130-400); RED BLOOD COUNT 3.87 10*6/uL (4.10-5.10); RED CELL DISTRI WIDTH 13.5 % (0-14.5); WHITE BLOOD COUNT 13.1 10*3/uL (4.8-10.8)
[2023-02-19 08:00] VITALS: BP 125/50
[2023-02-19 12:00] VITALS: BP 132/68
[2023-02-19 16:00] VITALS: BP 122/49
[2023-02-19 20:00] VITALS: BP 127/57
[2023-02-20] VITALS: BP 129/86
[2023-02-20 06:37] LABS: BASO % 0.3 % (0.0-1.0); EOS # 0.2 10*3/uL (0.0-0.4); EOS % 1.4 % (1.0-4.0); HEMATOCRIT 33.6 % (37.0-47.0); LYMPH # 1.7 10*3/uL (1.3-4.4); MEAN CORPUSCULAR HGB 27.7 pg (27.0-31.0); MEAN CORPUSCULAR HGB CONC 31.5 g/dl (33.0-37.0); MEAN PLATELET VOLUME 10.6 fl (9.6-12.3); MONO # 1.2 10*3/uL (0.1-1.0); MONO % 11.1 % (3.0-9.0); NEUT # 7.7 10*3/uL (2.3-7.9); NEUT % 70.8 % (47.0-73.0); PLATELET COUNT AUTOMATED 201 10*3/uL (130-400); RED BLOOD COUNT 3.82 10*6/uL (4.10-5.10); RED CELL DISTRI WIDTH 13.7 % (0-14.5); WHITE BLOOD COUNT 10.8 10*3/uL (4.8-10.8)
[2023-02-20 06:54] LABS: BUN 11 mg/dl (9-23); CHLORIDE 104 mmol/L (98-107); POTASSIUM 3.9 mmol/L (3.4-5.1)
[2023-02-20 08:07] VITALS: BP 133/59
[2023-02-20 12:00] VITALS: BP 122/58
[2023-02-20 16:00] VITALS: BP 141/69
[2023-02-20 20:00] VITALS: BP 147/71
[2023-02-21] VITALS: BP 125/63
[2023-02-21 06:42] LABS: BASO % 0.5 % (0.0-1.0); EOS # 0.2 10*3/uL (0.0-0.4); HEMATOCRIT 33.8 % (37.0-47.0); LYMPH # 1.5 10*3/uL (1.3-4.4); LYMPH % 17.5 % (27.0-41.0); MEAN CELL VOLUME 88.5 fl (81.0-99.0); MEAN CORPUSCULAR HGB CONC 31.7 g/dl (33.0-37.0); MONO % 11.2 % (3.0-9.0); NEUT # 5.9 10*3/uL (2.3-7.9); NEUT % 68.3 % (47.0-73.0); PLATELET COUNT AUTOMATED 195 10*3/uL (130-400); RED BLOOD COUNT 3.82 10*6/uL (4.10-5.10); RED CELL DISTRI WIDTH 13.5 % (0-14.5); WHITE BLOOD COUNT 8.6 10*3/uL (4.8-10.8)
[2023-02-21 08:00] VITALS: BP 108/59
[2023-02-21 12:00] VITALS: BP 117/46
[2023-02-21 16:00] VITALS: BP 115/51
[2023-02-21 20:00] VITALS: BP 162/49
[2023-02-22] VITALS: BP 133/66
[2023-02-22 07:19] LABS: BASO % 0.4 % (0.0-1.0); EOS # 0.2 10*3/uL (0.0-0.4); EOS % 2.1 % (1.0-4.0); HEMATOCRIT 35.6 % (37.0-47.0); LYMPH % 22.2 % (27.0-41.0); MEAN CELL VOLUME 89.4 fl (81.0-99.0); MEAN CORPUSCULAR HGB 27.1 pg (27.0-31.0); MEAN CORPUSCULAR HGB CONC 30.3 g/dl (33.0-37.0); MEAN PLATELET VOLUME 11.1 fl (9.6-12.3); MONO # 0.8 10*3/uL (0.1-1.0); MONO % 8.9 % (3.0-9.0); NEUT % 65.7 % (47.0-73.0); PLATELET COUNT AUTOMATED 212 10*3/uL (130-400); RED BLOOD COUNT 3.98 10*6/uL (4.10-5.10); RED CELL DISTRI WIDTH 13.5 % (0-14.5); WHITE BLOOD COUNT 9.1 10*3/uL (4.8-10.8)
[2023-02-22 08:00] VITALS: BP 125/50
[2023-02-22] MEDS ORDERED: PHARMASSURE V500 MCG PO (11:39)
[2023-02-22] MEDS ORDERED: VITAMIN D350 MCG PO (11:39)
[2023-02-22] MEDS ORDERED: HYDROCODONE-AC1 EAC1 PO (11:39)
[2023-02-22 12:00] VITALS: BP 122/73
== END 2023-02-22 14:36 | DRG 481 ==
LOC: ED 12:13 → EDHOLD 15:11 → 5E 15:11 → EDHOLD 15:12 → 5E 16:56
PROVIDERS: Internal Medicine; Orthopaedic Surgery; Student in an Organized Health Care Education/Training Program; ADMIT Student in an Organized Health Care Education/Training Program; ATTEND Student in an Organized Health Care Education/Training Program
PROC: 0QH734Z Insertion of Internal Fixation Device into Left Upper Femur, Percutaneous Approach (ICD-10-PCS; principal; 2023-02-18)
PROC: 3E0T3BZ Introduction of Anesthetic Agent into Peripheral Nerves and Plexi, Percutaneous Approach (ICD-10-PCS; 2023-02-18)
DX: S72.145A Nondisplaced intertrochanteric fracture of left femur, initial encounter for closed fracture (principal); M80.052A Age-related osteoporosis with current pathological fracture, left femur, initial encounter for fracture; E53.8 Deficiency of other specified B group vitamins; W10.8XXA Fall (on) (from) other stairs and steps, initial encounter; R00.1 Bradycardia, unspecified; D64.9 Anemia, unspecified; K21.9 Gastro-esophageal reflux disease without esophagitis; F32.9 Major depressive disorder, single episode, unspecified; E03.9 Hypothyroidism, unspecified; E11.65 Type 2 diabetes mellitus with hyperglycemia; J44.9 Chronic obstructive pulmonary disease, unspecified; I10 Essential (primary) hypertension; E78.5 Hyperlipidemia, unspecified; Z87.891 Personal history of nicotine dependence; Y93.89 Activity, other specified; Y92.89 Other specified places as the place of occurrence of the external cause; Y99.8 Other external cause status; Z79.51 Long term (current) use of inhaled steroids; Z79.1 Long term (current) use of non-steroidal anti-inflammatories (NSAID); Z79.84 Long term (current) use of oral hypoglycemic drugs; Z79.899 Other long term (current) drug therapy

== ENCOUNTER → 2023-03-04 | Outpatient (CLI) | payer OTHER ==
[~2023-03-04] MED LIST changes: +PHARMASSURE V500 MCG PO; +VITAMIN D350 MCG PO
== END | disposition home or self-care (01) ==
LOC: ORTHO 00:13
PROVIDERS: ATTEND Orthopaedic Surgery
DX: S72.145D Nondisplaced intertrochanteric fracture of left femur, subsequent encounter for closed fracture with routine healing (principal); X58.XXXD Exposure to other specified factors, subsequent encounter

== ENCOUNTER → 2023-04-01 | Outpatient (CLI) | payer OTHER | END | disposition home or self-care (01) | LOC: ORTHO 00:20 | PROVIDERS: ATTEND Orthopaedic Surgery | DX: S72.145D Nondisplaced intertrochanteric fracture of left femur, subsequent encounter for closed fracture with routine healing (principal); Z98.890 Other specified postprocedural states; X58.XXXD Exposure to other specified factors, subsequent encounter ==

== ENCOUNTER → 2023-05-20 | Outpatient (CLI) | payer OTHER | END | disposition home or self-care (01) | LOC: ORTHO 01:11 | PROVIDERS: ATTEND Orthopaedic Surgery | DX: M17.12 Unilateral primary osteoarthritis, left knee (principal); M81.0 Age-related osteoporosis without current pathological fracture; I70.8 Atherosclerosis of other arteries ==